=== PATIENT | male | born 1960 | race Caucasian/White ===

== ENCOUNTER 2017-07-12 07:31 | Day surgery (SDC) | payer BC ==
[~2017-07-12] VITALS: Ht 170.2 cm; Wt 84.3 kg
[2017-07-12 08:26] VITALS: Ht 170.2 cm; Wt 84.3 kg
[2017-07-12] MEDS ORDERED: [UNRECOGNIZED DRUG - OTHER] (08:31)
[2017-07-12] MEDS ORDERED: ATENOLOL (08:31)
[2017-07-12] MEDS ORDERED: PREVACID (08:31)
[2017-07-12] MEDS ORDERED: ZANTAC (08:31)
[2017-07-12] MEDS ORDERED: LISINOPRIL (08:31)
[2017-07-12 09:08] VITALS: BP 130/80; PULSE 74; RESP 20
--- NOTE | 2017-07-12 10:14 | OPPN ---
Date/Time of Note Date/Time of Note DATE: 07/12/17 TIME: 10:12 Operative Report Preoperative Diagnosis Abdominal pain and colon cancer screening Postoperative Diagnosis Same Operation/Procedure Performed 01 EGD with a biopsy 1. Erosive esophagitis 2. Gastritis. Colonoscopy with polypectomy and biopsy Cecal humanity polyp removed with cold biopsy forceps Transverse colon polyp removed by hot snare polypectomy and another small polyp removed by cold snare Diverticulosis mild , hemorrhoids and tight sphincter Provider: CLARA MCGEE MD Anesthesia Type: moderate sedation Estimated blood loss: none Transfusion Required: no Specimen: none Grafts/Implants: none Complications: no CLARA MCGEE MD Jul 12, 2017 10:13
[2017-07-12] MEDS ORDERED: MIDAZOLAM 1 MG/ML 2 ML INJ ONE ×3 (10:22)
[2017-07-12] MEDS ORDERED: FENTAnyl 50 MCG/ML VIAL ONE (10:22)
[2017-07-12 10:41] VITALS: BP 121/84; PULSE 80; RESP 14
--- NOTE | 2017-07-13 08:39 | GILP ---
DATE OF PROCEDURE: 07/12/2017 INDICATIONS FOR PROCEDURE: A 56-year-old male with a history of anxiety, complaint of epigastric pain for the last few months, heartburn and the purpose is to evaluate the upper GI tract, find out the cause of his symptoms and colonoscopy for colon cancer screening. The risks of the procedure, and related complications, sedative risk, and alternatives discussed. Informed consent was obtained. DESCRIPTION OF PROCEDURE: The patient was sedated with 5 mg of Versed and 10 mg of fentanyl. After optimal sedation, scope was passed with much ease into the esophagus, which was grossly within normal limits. Z-line was at 37 cm. He had LA class A erosive esophagitis. Stomach mucosa revealed gastritis. Biopsies taken to rule out H. pylori infection. The duodenum 1st and 2nd part, including ampulla appeared normal. Retroversion also was normal. Scope was straightened out and removed with good patient tolerance. IMPRESSION: 1. Gastritis. 2. Esophagitis, LA class A. 3. Normal duodenum. 4. Normal esophagus, 5th Z-line was at 37 cm. PLAN: Plan is to review histopathology. PROCEDURE PERFORMED: Colonoscopy. DESCRIPTION OF PROCEDURE: Digital examination done. Sphincter tone was tight. Scope was passed with much ease into rectum, advanced to sigmoid, descending, transverse colon all the way into the cecum. There was a polyp identified in the cecum, successfully removed with Jumbo biopsy forceps. The terminal ileum was normal. The rest of the colon appeared normal except for diverticula on the left side of the colon. There was a polyp identified in the proximal transverse colon, successfully removed by cold snare technique. There was another polyp in the vicinity, also successfully removed by cold snare technique. Rest of the colon appeared normal. Retroversion was difficult. Scope was straightened out and removed with good patient tolerance. IMPRESSION: 1. Polyp in the cecum, diminutive, removed with cold biopsy forceps. 2. Polyp in the proximal transverse colon, pedunculated, successfully removed by hot snare technique. 3. Small polyp in the transverse colon, again successfully removed by cold snare technique. 4. Hemorrhoid and tight sphincter tone. PLAN: Stay on high-fiber diet. The patient definitely needs a repeat colonoscopy in 5 years. Dictated By: Jeremy Srivastava MD /[email or web address] /Document#: [id number] ; Dr. Kathy Hendrickson
== END 2017-07-12 12:01 | disposition home or self-care (01) ==
LOC: GIL 07:31
PROVIDERS: ATTEND Internal Medicine Gastroenterology
DX: Z12.11 Encounter for screening for malignant neoplasm of colon (principal); K29.50 Unspecified chronic gastritis without bleeding; D12.0 Benign neoplasm of cecum; K20.9 Esophagitis, unspecified; D12.3 Benign neoplasm of transverse colon
CPT/HCPCS: 43239; 45380; 88305; 88312; J2250; J3010; Z7610